=== PATIENT | female | born 1950 | race Caucasian/White ===

== ENCOUNTER 2019-07-21 10:45 | Day surgery (SDC) | payer MEDICARE, MEDICAID ==
[2019-07-18 12:41] LABS: ALANINE AMINOTRANSFERASE 17 U/L (12-78); ALBUMIN 3.6 g/dL (3.4-5.0); ANION GAP 8 mmol/L (5-15); CALCIUM 9.2 mg/dL (8.5-10.1); CHLORIDE 103 mmol/L (98-107); CREATININE 1.09 mg/dL (0.55-1.02)
[2019-07-18 12:44] LABS: ALKALINE PHOSPHATASE 61 U/L (45-117); BILIRUBIN,TOTAL 0.5 mg/dL (0.2-1.0); TOTAL PROTEIN 8.5 g/dL (6.4-8.2)
[~2019-07-21] VITALS: Ht 162.6 cm; Wt 110.4 kg
[~2019-07-21 10:45] MED LIST: ACYC-114 PO; AMIT25TA PO; AMLO10TA8 PO; BISA10SU4 PR; CEPH-376 PO; CHOL100012 PO; CYCL-259 PO; ESTR0.753 PO; ESTR1TAB15 PO; FLAX10004 PO; GABA600T7 PO; HYDR2TAB29 PO; HYDR4TAB PO; IBUP-1623 PO; LISI-167 PO; OMEP-110 PO; SENN-31 PO; TRIA1TAB3 PO
[2019-07-21] MEDS ORDERED: LACTATED RINGERS 1,000 ML IV SCH (11:11)
[2019-07-21 11:15] VITALS: BP 92/59
[2019-07-21] MEDS ORDERED: MIDAZOLAM 1 MG/ML, 2ML ONE (13:51)
[2019-07-21] MEDS ORDERED: FENTANYL PF 100 MCG/2ML ONE ×3 (13:51→16:17)
[2019-07-21] MEDS ORDERED: BUPIVACAINE/PF 0.5% ONE ×2 (13:52→15:08)
[2019-07-21] MEDS ORDERED: EPINEPHRINE 1 MG/ML, 1ML ONE (13:52)
[2019-07-21] MEDS ORDERED: KETOROLAC 30 MG/1 ML ONE (14:56)
[2019-07-21] MEDS ORDERED: MIDAZOLAM 1 MG/ML, 2ML IV PRN (15:30)
[2019-07-21] MEDS ORDERED: PROMETHAZINE 25 MG/ML, 1ML IV PRN (15:30)
[2019-07-21] MEDS ORDERED: LORazepam 2 MG/ML, 1ML IVPush PRN (15:30)
[2019-07-21] MEDS ORDERED: FENTANYL PF 100 MCG/2ML IV PRN (15:30)
[2019-07-21] MEDS ORDERED: ACETAMINOPHEN 325 MG TABLET PO PRN (15:30)
[2019-07-21] MEDS ORDERED: METOPROLOL 1 MG/ML, 5ML IV PRN (15:30)
[2019-07-21] MEDS ORDERED: hydrALAzine 20 MG/ML, 1ML IV PRN (15:30)
[2019-07-21] MEDS ORDERED: HYDROmorphone 2 MG/ML, 1ML IVPush PRN (15:30)
[2019-07-21] MEDS ORDERED: ALBUTEROL/IPRATROPIUM 2.5MG/0.5MG, 3 ML NPPB PRN (15:30)
[2019-07-21] MEDS ORDERED: ONDANSETRON 2MG/ML, 2ML ONE (15:32)
[2019-07-21] MEDS ORDERED: PROPOFOL 10 MG/ML, 20ML ONE (15:32)
[2019-07-21] MEDS ORDERED: CEFAZOLIN 1,000 MG ONE (15:32)
[2019-07-21] MEDS ORDERED: DEXAMETHASONE 4 MG/ML, 1ML ONE (15:32)
[2019-07-21] MEDS ORDERED: OXYcodone 5 MG/5 ML ORAL.SOL UDC ONE (16:18)
[2019-07-21] MEDS ORDERED: HYDROmorphone 2 MG/ML, 1ML ONE (16:18)
[2019-07-21] MEDS ORDERED: ALBUTEROL/IPRATROPIUM 2.5MG/0.5MG, 3 ML ONE (17:03)
== END 2019-07-21 18:20 | disposition home or self-care (01) ==
LOC: OUT 10:45 → EDSTATUS 13:30 → OUT 18:20
PROVIDERS: ATTEND Podiatrist Foot & Ankle Surgery
DX: M65.872 Other synovitis and tenosynovitis, left ankle and foot (principal); M25.372 Other instability, left ankle; M24.072 Loose body in left ankle; F17.210 Nicotine dependence, cigarettes, uncomplicated; I10 Essential (primary) hypertension; E66.01 Morbid (severe) obesity due to excess calories; Z68.41 Body mass index [BMI] 40.0-44.9, adult; Z88.0 Allergy status to penicillin; Z88.8 Allergy status to other drugs, medicaments and biological substances; Z88.6 Allergy status to analgesic agent; Z88.1 Allergy status to other antibiotic agents; Z88.5 Allergy status to narcotic agent
CPT/HCPCS: 27620; 27695; 29895; 36415; 80053; 93005; C1713; J0171; J0690; J1100; J1885; J2250; J2405; J2704; J3010; J7120